=== PATIENT | female | born 1970 | race Caucasian/White ===

== ENCOUNTER 2016-09-26 06:57 | Emergency (ER) | payer BC ==
[2016-09-26 07:11] VITALS: TEMP 98.2
--- NOTE | 2016-09-26 07:15 | EDPHY ---
HPI/HX/ROS/PE/MDM Narrative: CHIEF COMPLAINT: Low back pain HPI: This patient is a 46 year old female who presents to the Emergency Department complaining of acute low back pain beginning yesterday afternoon while at work and worsening over time. She describes her pain as "nerve pain" localized diffusely to her lower back with radiating paresthesias down both legs , worse on the right. She does report one episode of bowel incontinence last night. She denies urinary incontinence, abdominal pain, fever or chills. Denies history of back surgery. No additional pertinent medical history. REVIEW OF SYSTEMS: Aside from elements discussed in the HPI, a comprehensive 10-point review of systems was reviewed and is negative. PMH: Hysterectomy, appendectomy, cholecystectomy, IBS, hypertension SOCIAL HISTORY: Smokes occasionally PHYSICAL EXAM: General:Patient is alert, tearful, in mild distress. ENT:Eyes are normal to inspection. ENT inspection normal. Neck: Normal inspection. Full range of motion. Respiratory:No respiratory distress. Breath sounds normal bilaterally. Cardiovascular: Regular rate and rhythm. Strong peripheral pulses. Normal cap refill. Abdomen:The abdomen is nontender to palpation. There are no peritoneal signs. There are normal bowel sounds. Back: Normal to inspection. Mild lumbar tenderness to palpation. Skin: Normal color. No rash. Warm and dry. Extremities: Normal appearance. Full range of motion. Neuro: Oriented x3. 2/5 strength bilaterally to dorsiflexion and plantar flexion with poor effort. Normal sensory function. ED Course: This 46-year-old female presents with acute onset atraumatic low back pain with bilateral radiculopathy beginning yesterday. She reports one episode of bowel incontinence. She denies fever and is afebrile at triage. On exam, she has 2/6 motor strength to both lower extremities with minimal effort. Given the episode of bowel incontinence, will proceed with MRI of the lumbar spine. Will also obtain labs and UA. Labs reviewed and are unremarkable. 933: MRI of the lumbar spine is negative per Dr. Acharya. Will proceed with CT of the abdomen and pelvis. 1030: CT results reported to me by Dr. Parnell, radiology, and are non-acute. Awaiting UA results. UA reviewed and is normal. I discussed lab, imaging, and UA results with the patient. She understands that she should follow-up with neurosurgery to further evaluate her back pain. She is given customary return precautions and will be discharged home in good condition. MDM: This patient presents with sharp back pain of unknown etiology. Her MRI L- spine and CTabd are both negative for acute features. There are no signs of shingles or cellulitis. I think the patient is safe for outpatient workup. - Data Points Imaging Results: Imaging Impressions Lumbar Spine MRI 09/26/16 07:30 Impression: 1. L5-S1: Mild bilateral facet arthropathy without disk herniation or stenosis. 2. No lumbar disk herniations, central canal stenosis, cord compression, or neural foraminal stenosis. Findings and recommendations discussed with Emergency Department physician, Luis Stephens M.D. at 0930 hours, September 26, 2016. Final report concurs with initial preliminary interpretation. Abdomen CT 09/26/16 09:33 Impression: 1. Status post cholecystectomy and hysterectomy. 2. Mild constipation. 3. Mildly prominent appendix, with no periappendiceal or pericecal inflammatory change, or localized fluid collection. The patient reportedly is not focally tender over the right lower quadrant of the abdomen. Findings were discussed with Luis Stephens MD at 10:23 am, on 09/26/2016. Laboratory Results: Laboratory Results 09/26/16 07:45 09/26/16 07:45 09/26/16 09/26/16 09/26/16 10:45 07:45 07:45 WBC 6.73 10^3/uL 10^3/uL (3.80-9.50) RBC 4.13 10^6/uL L 10^6/uL (4.18-5.33) Hgb 13.3 g/dL g/dL (12.6-16.3) Hct 37.9 % L % (38.0-47.0) MCV 91.8 fL fL (81.5-99.8) MCH 32.2 pg pg (27.9-34.1) MCHC 35.1 g/dL g/dL (32.4-36.7) RDW 12.3 % % (11.5-15.2) Plt Count 250 10^3/uL 10^3/uL (150-400) MPV 9.7 fL fL (8.7-11.7) Neut % (Auto) 46.5 % % (39.3-74.2) Lymph % (Auto) 37.4 % % (15.0-45.0) [place] % (Auto) 10.4 % % (4.5-13.0) Eos % (Auto) 4.2 % % (0.6-7.6) Baso % (Auto) 1.2 % % (0.3-1.7) Nucleat RBC Rel Count 0.0 % % (0.0-0.2) Absolute Neuts (auto) 3.13 10^3/uL 10^3/uL (1.70-6.50) Absolute Lymphs (auto) 2.52 10^3/uL 10^3/uL (1.00-3.00) Absolute Monos (auto) 0.70 10^3/uL 10^3/uL (0.30-0.80) Absolute Eos (auto) 0.28 10^3/uL 10^3/uL (0.03-0.40) Absolute Basos (auto) 0.08 10^3/uL 10^3/uL (0.02-0.10) Absolute Nucleated RBC 0.00 10^3/uL 10^3/uL (0-0.01) Immature Gran % 0.3 % % (0.0-1.1) Immature Gran # 0.02 10^3/uL 10^3/uL (0.00-0.10) Sodium 141 mEq/L mEq/L (134-144) Potassium 4.3 mEq/L mEq/L (3.5-5.2) Chloride 108 mEq/L mEq/L (97-110) Carbon Dioxide 23 mEq/l mEq/l (22-31) Anion Gap 10 mEq/L mEq/L (8-16) BUN 10 mg/dL mg/dL (7-23) Creatinine 0.9 mg/dL mg/dL (0.6-1.0) Estimated GFR > 60 Glucose 87 mg/dL mg/dL (70-100) Calcium 9.1 mg/dL mg/dL (8.5-10.4) Urine Color PALE YELLOW Urine Appearance CLEAR Urine pH 6.0 (5.0-7.5) Ur Specific [place] 1.026 (1.002-1.030) Urine Protein NEGATIVE (NEGATIVE) Urine Ketones NEGATIVE (NEGATIVE) Urine Blood 1+ H (NEGATIVE) Urine Nitrate NEGATIVE (NEGATIVE) Urine Bilirubin NEGATIVE (NEGATIVE) Urine Urobilinogen NEGATIVE EU EU (0.2-1.0) Ur Leukocyte Esterase NEGATIVE (NEGATIVE) Urine RBC Pending Urine WBC Pending Ur Epithelial Cells Pending Urine Glucose NEGATIVE (NEGATIVE) Medications Given: Discontinued Medications Cyclobenzaprine HCl (Flexeril) 10 mg PO EDNOW ONE Stop: 09/26/16 09:47 Last Admin: 09/26/16 10:00 Dose: 10 mg General Time Seen by Provider: 09/26/16 07:01 Initial Vital Signs: Initial Vital Signs Temperature (C) 36.8 C 09/26/16 07:00 Heart Rate 72 09/26/16 07:00 Respiratory Rate 18 09/26/16 07:00 Blood Pressure 125/87 H 09/26/16 07:00 O2 Sat (%) 97 09/26/16 07:00 O2 Delivery Mode Room Air Allergies/Adverse Reactions: No Known Allergies Allergy (Unverified 09/26/16 07:12) Home Medications: Medication Instructions Recorded Fluoxetine HCl 09/26/16 Hydroxyzine HCl 09/26/16 Metoprolol Succinate 09/26/16 PRILOSEC 09/26/16 ZYRTEC 09/26/16 Departure - Departure Disposition: Home, Routine, Self-Care Clinical Impression: Low back pain Qualifiers: Chronicity: acute Back pain laterality: bilateral Sciatica presence: with sciatica Sciatica laterality: bilateral sciatica Qualified Code(s): M54.42 - Lumbago with sciatica, left side Condition: Good Instructions: Acute Low Back Pain (ED) Additional Instructions: 1. Take 650mg Ibuprofen every 6 hours as needed for pain. 2. Follow-up with Dr. Stein, neurosurgeon, for further evaluation of your back pain. You can call his office to schedule an appointment. 3. Return to the Emergency Department with inability to control your bladder or bowel movements, severe pain, inability to walk, high fever, or for other serious concerns. Referrals: Debbie Dorantes NP [Primary Care Provider] - As per Instructions Dee Stein MD [Medical Doctor] - As per Instructions Report Scribed for: Luis Stephens Report Scribed by: Isabella Gauthier Date of Report: 09/26/16 Time of Report: 07:15 Physician Review and Approval Statement: Portions of this note were transcribed by an ED scribe. I personally performed the history, physical exam, and medical decision making; and confirm the accuracy of the information in the transcribed note.
[2016-09-26 07:53] LABS: % IMMATURE GRANULYOCYTES 0.3 % (0.0-1.1); ABSOLUTE IMMATURE GRANULOCYTES 0.02 10^3/uL (0.00-0.10); ADD DIFF? NO; ADD MORPH? NO; ADD SCAN? NO; ATYPICAL LYMPHOCYTE FLAG 10 (0-99); FRAGMENT RBC FLAG 0 (0-99); HEMATOCRIT 37.9 % (38.0-47.0); HEMOGLOBIN 13.3 g/dL (12.6-16.3); LEFT SHIFT FLG 0 (0-99); LIPEMIA HEMOLYSIS FLAG 90 (0-99); MEAN CELL HEMOGLOBIN 32.2 pg (27.9-34.1); MEAN CELL HEMOGLOBIN CONCENTR. 35.1 g/dL (32.4-36.7); MEAN CELL VOLUME 91.8 fL (81.5-99.8); MEAN PLATELET VOLUME 9.7 fL (8.7-11.7); PLATELET CLUMPS FLAG 10 (0-99); PLATELET COUNT 250 10^3/uL (150-400); RED BLOOD CELL COUNT 4.13 10^6/uL (4.18-5.33); RED CELL DISTRIBUTION WIDTH 12.3 % (11.5-15.2)
[2016-09-26 08:09] LABS: ANION GAP 10 mEq/L (8-16); CALCIUM 9.1 mg/dL (8.5-10.4); CARBON DIOXIDE 23 mEq/l (22-31); CHLORIDE 108 mEq/L (97-110); CREATININE 0.9 mg/dL (0.6-1.0); GLOMERULAR FILTRATION RATE > 60; GLUCOSE 87 mg/dL (70-100); POTASSIUM 4.3 mEq/L (3.5-5.2); SODIUM 141 mEq/L (134-144)
[2016-09-26] MEDS ORDERED: IOPAMIDOL (ISOVUE-300) 100 ML BTL IV ONE (09:41)
[2016-09-26] MEDS ORDERED: CYCLOBENZAPRINE 10 MG TAB PO ONE (09:46)
[2016-09-26 10:59] LABS: COLOR PALE YELLOW; LEUKOCYTE ESTERASE,URINE NEGATIVE (NEGATIVE); NITRITE,URINE NEGATIVE (NEGATIVE)
[2016-09-26 11:04] LABS: MUCUS TRACE /lpf (NONE-1+)
[2016-09-26 12:03] VITALS: BP 107/58; PULSE 70; RESP 18; O2SAT 96
== END 2016-09-26 12:02 | disposition home or self-care (01) ==
DX: M54.42 Lumbago with sciatica, left side (principal); M54.41 Lumbago with sciatica, right side; I10 Essential (primary) hypertension; F17.200 Nicotine dependence, unspecified, uncomplicated
CPT/HCPCS: Q9967

== ENCOUNTER → 2016-11-17 | Outpatient (CLI) | payer BC | LOC: BRMIMAGING 15:03 | PROVIDERS: ATTEND Nurse Practitioner | DX: Z12.31 Encounter for screening mammogram for malignant neoplasm of breast (principal) | CPT/HCPCS: G0202 ==

== ENCOUNTER → 2016-12-22 | Outpatient (CLI) | payer BC | LOC: BRMIMAGING 08:46 | PROVIDERS: ATTEND Nurse Practitioner | DX: R92.8 Other abnormal and inconclusive findings on diagnostic imaging of breast (principal) | CPT/HCPCS: G0206 ==